=== PATIENT | female | born 1995 | race Caucasian/White ===

== ENCOUNTER → 2017-08-24 | Outpatient (CLI) | payer OTHER ==
[~2017-08-24] MED LIST: BCPILLS PO; METH4PAK PO; PRENTAB26 PO
== END | disposition home or self-care (01) ==
LOC: C.PAPS 11:17
PROVIDERS: ATTEND Physician Assistant
DX: Z12.4 Encounter for screening for malignant neoplasm of cervix (principal); R87.610 Atypical squamous cells of undetermined significance on cytologic smear of cervix (ASC-US); Z11.51 Encounter for screening for human papillomavirus (HPV)

== ENCOUNTER → 2017-08-24 | Outpatient (CLI) | payer OTHER ==
[~2017-08-24] MED LIST changes: -BCPILLS PO; -METH4PAK PO
[2017-08-26 01:17] LABS: CHLAMYDIA TRACH RNA*** NOT DETECTED (NOT DETECTED); GC (NEIS GONORRHOEAE)RNA** NOT DETECTED (NOT DETECTED)
== END | disposition home or self-care (01) ==
LOC: C.LABSPEC 10:42
PROVIDERS: ATTEND Physician Assistant
DX: Z01.419 Encounter for gynecological examination (general) (routine) without abnormal findings (principal); N89.8 Other specified noninflammatory disorders of vagina

== ENCOUNTER 2020-07-24 21:34 | Inpatient (IN) ==
[2020-07-24] MEDS ORDERED: OXYTOCIN 30 UNITS/500 ML BAG IV PRN (23:45)
[2020-07-24] MEDS: LACTATED RINGER'S 1,000 ML IV PRN (23:55)
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
[2020-07-24] MEDS ORDERED: fentaNYL citrate 100 MCG/2 ML VIAL ONE (23:59)
[2020-07-24] MEDS ORDERED: SODIUM CHLORIDE 0.9% INJ 10 ML VIAL ONE (23:59)
[2020-07-24] MEDS ORDERED: ePHEDrine sulfate 50 MG/ML AMP ONE (23:59)
[2020-07-24] MEDS ORDERED: BUPIVACAINE 0.25% 30 ML VIAL ONE (23:59)
[2020-07-25] MEDS ORDERED: fentaNYL 2MCG/ML ROPIVACAINE 1.25MG/ML 100 ML BAG EPI ONE
[2020-07-25 00:06] LABS: Hematocrit (blood only) 37.3 % (37-47); Hemoglobin 12.2 g/dL (12.0-16.0); Mean Corpuscular Hgb Conc 32.7 g/dL (32-36); Mean Corpuscular Volume 88.8 fL (80-100); Mean Platelet Volume 12.5 fL (7.4-10.4); Platelet Count 165 K/uL (130-400); RDW Coefficient of Variation 14.2 % (11.5-14.5); RDW Standard Deviation 45.9 fL (36.4-46.3); White Blood Count 8.51 K/uL (4.8-10.8)
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
[2020-07-25] MEDS: LACTATED RINGER'S 1,000 ML IV PRN (01:09)
--- NOTE | 2020-07-25 01:20 | Labor Progress Brief Note ---
Date of Service July 25, 2020 Subjective Some improvement in pain w/ epidural Assessment & Plan (1) : VSS Fetus cat 1 Labor - s/p AROM, has continued to make change on own. will re-check in a few hours GBS neg Epidural in place Admission and Anticipated Discharge Date Admission Date: July 24, 2020 Physical Exam Genitourinary: OB Exam Abdomen: + regular contractions (q4-5min) Manual OB Exam: + cervical dilation 5 cm, + cervical effacement 70%, + station -1 and + amniotic fluid (AROM clear/bloody fluid) OB Exam Monitor Tracing: + external FHT monitor used, + external uterine monitor used and + category I (130/mod/+accel/-decel) Results & Data ([facility]) Vital Signs (Past 12 Hours) Vital Signs Temp Pulse Resp BP Pulse Ox 07/25/20 01:16 77 100 07/25/20 01:12 101 H 111/73 07/25/20 01:11 85 100 07/25/20 01:06 76 18 122/74 100 07/25/20 01:03 78 111/64 07/25/20 01:01 86 99 07/25/20 01:00 90 123/66 07/25/20 00:58 98.1 F 07/25/20 00:57 78 18 114/59 L 07/25/20 00:56 84 98 07/25/20 00:54 80 18 106/60 07/25/20 00:51 80 18 109/63 99 07/25/20 00:48 78 18 105/61 07/25/20 00:46 70 99 07/25/20 00:45 71 18 112/66 07/25/20 00:42 83 126/81 07/25/20 00:41 71 99 07/25/20 00:36 93 H 100 07/25/20 00:31 82 99 07/25/20 00:26 80 99 07/25/20 00:21 81 99 07/25/20 00:16 70 99 07/25/20 00:11 80 99 07/25/20 00:05 80 18 127/80 07/24/20 21:46 97.9 F 18 07/24/20 21:44 87 125/72 Coding Level of Care Code None Diagnoses Z34.90
[2020-07-25] MEDS ORDERED: BUPIVACAINE 0.25% 30 ML VIAL ONE (01:41)
[2020-07-25] MEDS ORDERED: ERYTHROMYCIN OP OINT 1 GM PKT ONE (04:14)
[2020-07-25] MEDS ORDERED: ACETAMINOPHEN 325 MG TAB PO PRN (04:49)
[2020-07-25] MEDS ORDERED: BENZOCAINE 20% AER SPR 82.5 GM CAN EXT PRN (04:49)
[2020-07-25] MEDS ORDERED: bisacodyL 10 MG SUPP PR PRN (04:49)
[2020-07-25] MEDS ORDERED: LACTATED RINGER'S 1,000 ML IV SCH (04:49)
[2020-07-25] MEDS ORDERED: OXYTOCIN 30 UNITS/500 ML BAG IV PRN (04:49)
[2020-07-25] MEDS ORDERED: SUPERCREAM 0.870% 15 GM JAR EXT PRN (04:49)
[2020-07-25] MEDS ORDERED: HYDROCORTISONE ACETATE 25 MG SUPP PR PRN (04:49)
[2020-07-25] MEDS ORDERED: DIPHTHERIA/TETANUS/PERTUSSIS 0.5 ML SYR/VIAL IM ONE (04:49)
--- NOTE | 2020-07-25 04:50 | Delivery Summary ---
Vaginal Delivery Summary Date of Service July 25, 2020 Vaginal Delivery Summary PREOPERATIVE DIAGNOSIS: 1. Single intrauterine at 39 4/7 wga 2. Labor POSTOPERATIVE DIAGNOSIS: 1. Single intrauterine at 39 4/7 wga 2. Labor 3. Delivered PROCEDURE: 1. Normal spontaneous vaginal delivery. SURGEON: Marva Ferguson MD ANESTHESIA: Epidural. ESTIMATED BLOOD LOSS: 300 mL FLUIDS: Continuous LR. URINE OUTPUT: None. COMPLICATIONS: None. CONDITION: Stable. INDICATIONS: 24 y/o at 39 4/7 wga w/ [place] 07/28/20 presented in labor. She received an epidural for pain control. She underwent artificial rupture of membranes and continued to progress unaugmented to complete. FINDINGS: A viable male infant with Apgars of 8 and 9 at 1 and 5 minutes respectively. SPECIMEN: None. OPERATIVE REPORT: The patient progressed to 10 cm, 100% effaced and +2 station, pushed over intact perineum with anesthesia to deliver a viable male infant, weight Apgars as above. Head of delivered in DEYA position. Nuchal cord was present x 2 and reduced easily. Body and shoulders were delivered without difficulty with body cord as well. was delivered to maternal abdomen and nursing staff. Delayed cord clamping was performed for 60 seconds. Cord was clamped and cut. Cord blood was obtained. Placenta delivered spontaneously intact with 3-vessel cord. IV oxytocin and fundal massage were given for excellent hemostasis. Vagina, cervix, placenta and perineum were inspected. Small periurethral hemostatic lacerations were noted and not needed to be repaired. Sponge and needle counts correct x2. No sponges were left behind. Mother and stable in immediate period. [facility] Vaginal Delivery Charge Vaginal Delivery Codes: 29285 global code for the antepartum, delivery, and p ost-
[2020-07-25] MEDS: IBUPROFEN 600 MG TAB PO PRN ×4 (05:08→19:54)
[2020-07-25] MEDS: DOCUSATE SODIUM 100 MG CAP PO SCH ×2 (09:18→20:47)
[2020-07-25] MEDS: PRENATAL VITAMIN 1 TAB PO SCH (09:18)
--- NOTE | 2020-07-25 10:45 | Anesthesia Procedure Note ---
Date of Service July 25, 2020 Anesthesia Post Epidural Note Vital Signs Vital Signs: Temp Pulse Resp BP Pulse Ox 36.6 C 72 18 117/68 96 07/25/20 07:24 07/25/20 07:19 07/25/20 07:24 07/25/20 07:19 07/25/20 04:41 Pain Intensity Bilateral Lower Abdomen: Pain Intensity: 3 Head: Pain Intensity: 5 Notes Mental Status: alert / awake / arousable and participated in evaluation Nausea / Vomiting: adequately controlled Pain: adequately controlled Airway Patency, RR, SpO2: stable & adequate BP & HR: stable & adequate Hydration State: stable & adequate Neuraxial Anesthesia: was administered and sensory block is resolving Anesthetic Complications: no major complications apparent and Pt Satisfied with anesthetic care Epidural: Removed without complications and With tip intact Notes: Epidural site clean, dry and intact. No signs of edema, erythema or bruising at insertion site. Pt instructed to request anesthesia if she has residual lower extremity numbness or if she develops lower extremity pain or weakness, back pain or headache.
--- NOTE | 2020-07-26 08:15 | Obstetrical Progress Note ---
Date of Service July 26, 2020 Assessment & Plan (1) exam: stable, routine care. expressed desire to go home, will see how things go today, but ok by ob standpoint. , rh pos, ri. pain well controlled. instructions reviewed. f/u 6wks pp check. Day #:: 1 Subjective Ambulation: ambulating normally Voiding: no voiding problems Diet Tolerance:: regular diet Lochia:: Small Feeding Type:: breast feeding working on her breast feeding. no other concerns. Physical Exam Constitutional WD/WN, vitals as above Respiratory normal respiratory effort, lungs clear to auscultation Cardiovascular Rate/Rhythm: regular rate and regular rhythm Gastrointestinal (Abdomen) Inspection/Auscultation: abdomen normal to inspection Percussion/Palpation: abdomen soft Fundus firm 2cm down Musculoskeletal nt calves no edema Neurologic grossly normal Psychiatric A+Ox3, euthymic affect Results & Data ([facility]) Vital Signs (Past 12 Hours) Vital Signs Temp Pulse Resp BP 07/26/20 00:20 97.9 F 62 18 116/78
[2020-07-26] MEDS: PRENATAL VITAMIN 1 TAB PO SCH (08:42)
[2020-07-26] MEDS: DOCUSATE SODIUM 100 MG CAP PO SCH (08:42)
[2020-07-26] MEDS: IBUPROFEN 600 MG TAB PO PRN (08:42)
[2020-07-26] MEDS ORDERED: bisacodyL 5 MG TABEC PO SCH (20:00)
== END 2020-07-26 13:30 | disposition home or self-care (01) | DRG 807 ==
LOC: OPB 21:34 → 4S1 21:35 → 4S2 07-25 08:01

== ENCOUNTER 2022-10-21 05:12 | Inpatient (IN) ==
[2022-10-21] MEDS ORDERED: LACTATED RINGER'S 1,000 ML IV PRN (05:31)
[2022-10-21] MEDS ORDERED: OXYTOCIN 30 UNITS/500 ML BAG IV PRN ×2 (05:31→06:37)
[2022-10-21] MEDS ORDERED: LIDOCAINE 1% LOCAL 20 ML VIAL INFIL PRN (05:31)
[2022-10-21] MEDS ORDERED: ePHEDrine sulfate 50 MG/ML AMP ONE (05:41)
[2022-10-21] MEDS ORDERED: fentaNYL citrate 100 MCG/2 ML VIAL ONE (05:42)
[2022-10-21] MEDS ORDERED: SODIUM CHLORIDE 0.9% INJ 10 ML VIAL ONE (05:42)
[2022-10-21] MEDS ORDERED: BUPIVACAINE 0.25% 30 ML VIAL ONE (05:42)
[2022-10-21] MEDS ORDERED: LIDOCAINE 2%/EPINEPHRINE 1:200,000 20 ML SDV ONE (05:42)
[2022-10-21] MEDS ORDERED: fentaNYL 2MCG/ML ROPIVACAINE 1.25MG/ML 100 ML BAG EPI ONE (05:43)
--- NOTE | 2022-10-21 06:18 | Delivery Summary ---
Vaginal Delivery Summary Date of Service October 21, 2022 Vaginal Delivery Summary [facility] Pre-operative Diagnosis: at 39 4/7 weeks labor Post-operative Diagnosis: same thin meconium Procedure: arom EBL: 300cc Anesthesia: none Procedure: Patient presents to labor and delivery in active labor. She was initially 5cm and rapidly progressed to 8cm then anterior lip. ARom for thin mec. The patient pushed for 2 contractions to deliver a viable male in elías position. The anterior shoulder was delivered easily after reducing a loose nuchal cord. The rest of the infant was then delivered without difficulty. The baby was vigorous. The nose and mouth were bulb suctioned and the infant was placed in the maternal abdomen for drying and attention. Cord was clamped and cut at one minute of life. Cord blood and segment obtained. Placenta deliv ered spontaneous, intact with a three vessel cord. Cervix/sulci/rectum/perineum were intact. Hemostasis obtained with dilute pitocin and fundal massage. Apgars were 8/9. Mother and baby doing well at the end of the delivery. [facility] V[facility] Delivery Charge Delivery Type Details: [facility]
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
[2022-10-21 06:30] LABS: Hematocrit (blood only) 34.9 % (37.0-47.0); Hemoglobin 11.5 g/dl (12.0-16.0); Mean Corpuscular Hemoglobin 27.1 pg (25.0-34.0); Mean Corpuscular Volume 82.3 fL (80.0-100.0); Mean Platelet Volume 12.8 fL (9.4-12.4); Platelet Count 201 K/uL (130-400); RDW Coefficient of Variation 13.4 % (11.5-14.5); RDW Standard Deviation 39.7 fL (36.4-46.3); Red Blood Count 4.24 M/uL (4.20-5.40); White Blood Count 9.09 K/ul (4.8-10.8)
[2022-10-21] MEDS ORDERED: HYDROCORTISONE ACETATE 25 MG SUPP PR PRN (06:37)
[2022-10-21] MEDS ORDERED: BENZOCAINE 20% AER SPR 82.5 GM CAN EXT PRN (06:37)
[2022-10-21] MEDS ORDERED: DIPHTHERIA/TETANUS/PERTUSSIS 0.5mL SYR/VIAL (Age 7+yrs) IM ONE (06:37)
[2022-10-21] MEDS ORDERED: oxyCODONE/ACETAMINOPHEN 5mg/325mg TAB PO PRN (06:37)
[2022-10-21] MEDS ORDERED: IBUPROFEN 600 MG TAB PO ONE (06:38)
[2022-10-21] MEDS: ACETAMINOPHEN 325 MG TAB PO PRN ×2 (07:13→21:28)
[2022-10-21] MEDS: PRENATAL VITAMIN 1 TAB PO SCH (08:41)
[2022-10-21] MEDS: DOCUSATE SODIUM 100 MG CAP PO SCH ×2 (08:41→21:28)
[2022-10-21] MEDS: IBUPROFEN 600 MG TAB PO PRN ×2 (16:01→21:28)
[2022-10-22] MEDS: IBUPROFEN 600 MG TAB PO PRN (02:37)
[2022-10-22] MEDS: ACETAMINOPHEN 325 MG TAB PO PRN (05:56)
[2022-10-22 06:17] LABS: Hematocrit (blood only) 30.2 % (37.0-47.0); Hemoglobin 9.8 g/dl (12.0-16.0)
--- NOTE | 2022-10-22 06:24 | Obstetrical Progress Note ---
Date of Service October 22, 2022 Assessment & Plan (1) care following vaginal delivery: Plan - Overall, feeling well, ate well last night but endorses some nausea this AM - feeding going well without concern - Urinating and passing gas appropriately - Ambulating well in room - Pain controlled w/ Ibuprofen/Tylenol - Hgb 9.8 on 10/22 - Vitals stable, BP 106/54 - Routine PP care progressing well - Anticipate discharge @ 24-48 hours PP - Recommending f/u outpatient in 6 weeks Admission and Anticipated Discharge Date Admission Date: October 21, 2022 Supervising Physician Co-Signing Physician Notes patient is seen and evaluated with resident and agree with the above findings and plan Subjective Ana Maria is a 27 year old female who is PPD #1 following delivery at 39 4/7. She reports feeling well overall this morning. - Ambulation - well throughout room - Voiding/Acevedo - independent voids, no dysuria or pressure - Gas/Stool - passing gas, no bowel movement - Diet - regular, ate dinner, experiencing nausea w/o emesis - Lochia - diminishing, moderate amount - Infant Feeding Type - breast feeding - Pain Level - 0/10, controlled with Ibuprofen/Tylenol Review of Systems - Denies fever, chills, sweats - Denies shortness of breath, difficulty breathing, chest pain, palpitations, chest pressure. - Denies breast pain. - Denies dysuria. - Denies headache or changes in vision. Physical Exam Physical Exam: General: Alert, oriented. No acute distress. Cardiac: RRR, normal S1/S2, no murmurs/rubs/gallops. Respiratory: Non-labored, CTAB, no wheezes/rales/rhonchi. Symmetric chest rise. Abdomen: Soft, nontender, nondistended. Bowel sounds present. Uterus: Uterine fundus firm, palpable 2 cm below umbilicus. Lower Extremities: No lower extremity edema or swelling. No deep calf pain. Acacia's negative bilaterally. Results & Data ([facility]) Vital Signs (Past 12 Hours) Vital Signs Temp Pulse Resp BP Pulse Ox O2 Del Method 10/22/22 05:00 36.4 C L 68 19 106/54 L 98 Room Air 10/22/22 00:23 36.6 C 71 16 103/58 L 99 Room Air 10/21/22 21:36 36.5 C 109 H 21 134/80 98 Room Air Resident Activity Tracking Resident Involvement: Resident Care Provided Care Provided: OB Delivery
[2022-10-22] MEDS: PRENATAL VITAMIN 1 TAB PO SCH (08:57)
[2022-10-22] MEDS: DOCUSATE SODIUM 100 MG CAP PO SCH (08:57)
[2022-10-22] MEDS ORDERED: bisacodyL 5 MG TABEC PO SCH (20:00)
[2022-10-23] MEDS ORDERED: bisacodyL 10 MG SUPP PR PRN
== END 2022-10-22 12:40 | disposition home or self-care (01) | DRG 807 ==
LOC: OPB 05:12 → 4S1 05:14 → 4E2 09:15